=== PATIENT | female | born 1970 | race Caucasian/White ===

== ENCOUNTER → 2020-01-23 | Emergency (ER) | payer MEDICAID, OTHER ==
[~2020-01-23] VITALS: Ht 177.8 cm; Wt 77.1 kg
[~2020-01-23] MED LIST: POTASSIUM EFFERVESENT TAB 25 MEQ PO ONE; SODIUM CHLORIDE 0.9% 1,000 ML IVB ONE
[2020-01-23 02:31] LABS: Basophils # (auto) 0 uL; Basophils % (auto) 0.4 % (0.0-2.0); Eosinophils # (auto) 0.1 uL; Eosinophils % (auto) 1.5 % (0.0-7.0); Hematocrit 41.1 % (36.0-46.0); Hemoglobin 13.9 g/dL (12.2-16.2); Lymphocytes # (auto) 1.6 uL; Lymphocytes % (auto) 17.9 % (10.0-50.0); Mean Corpuscular Hemoglobin 28.2 pg (28.0-32.0); Mean Corpuscular Hgb Conc. 33.7 g/dL (32.0-36.0); Mean Corpuscular Volume 83.5 fL (80.0-100.0); Monocytes # (auto) 0.4 uL; Neutrophils # (auto) 6.7 uL; Neutrophils % (auto) 75.2 % (37.0-80.0); Nucleated Red Blood Cells % 0.1 %; Platelet Count (auto) 214 10^3/uL (140-450); Red Blood Cells 4.93 10^6/uL (4.0-5.20); Red Cell Distribution Width 15.3 % (11.8-14.3); White Blood Cell 8.9 10^3/uL (4.4-10.8)
[2020-01-23 02:48] LABS: Alanine Aminotransferase 18 U/L (13-56); Albumin 3.3 g/dL (3.4-5.0); Anion Gap 10 (5-15); Aspartate Aminotransferase 14 U/L (15-37); BUN/Creatinine Ratio 10.9; Blood Urea Nitrogen 10 mg/dL (7-18); Calcium 8.4 mg/dL (8.5-10.1); Carbon Dioxide 24 mmol/L (21-32); Chloride 99 mmol/L (98-107); GFR African American 84 mL/min; GFR Non-African American 69 mL/min; Glucose 248 mg/dL (74-106); Magnesium 1.4 mg/dL (1.6-2.6); Sodium 133 mmol/L (136-145)
[2020-01-23 02:49] LABS: Urine Bacteria MOD /hpf (None Seen); Urine Blood Negative /uL (Negative); Urine Specific Gravity 1.002 (1.001-1.035); Urine WBC 5 /hpf (0 - 5)
[2020-01-23 02:50] LABS: Salicylate < 1.7 mg/dL (2.8-20.0)
[2020-01-23 02:54] LABS: Acetaminophen < 2.0 ug/mL (10-30); Potassium 2.7 mmol/L (3.5-5.1)
[2020-01-23 02:56] LABS: Lactic Acid w/Reflex 5.3 mmol/L (0.4-2.0)
[2020-01-23 02:58] LABS: Alcohol, Urine < 3.0 mg/dL (0-5); Amphetamine Screen, Urine NEGATIVE (NEGATIVE); Barbiturate Scree,Urine NEGATIVE (NEGATIVE); Benzodiazephine Screen, Urine NEGATIVE (NEGATIVE); Cannabinoid Screen, Urine NEGATIVE (NEGATIVE); Cocaine Screen, Urine NEGATIVE (NEGATIVE); Opiate Scree,Urine NEGATIVE (NEGATIVE); Phencyclidine Screen, Urine NEGATIVE (NEGATIVE)
[2020-01-23 02:58] LABS: Alkaline Phosphatase 138 U/L (45-117); Bilirubin, Total 0.6 mg/dL (0.2-1.0)
[2020-01-23] MEDS: MAGNESIUM SULFATE 1GM/100ML 100 ML IV SCH ×2 (07:39→08:35)
[2020-01-23 14:30] VITALS: BP 117/76
== END | disposition home or self-care (01) ==
LOC: EDBD 01:15 → ER 01:15
DX: R53.1 Weakness (principal); N39.0 Urinary tract infection, site not specified; E87.6 Hypokalemia; E83.42 Hypomagnesemia; E46 Unspecified protein-calorie malnutrition; E11.9 Type 2 diabetes mellitus without complications; I10 Essential (primary) hypertension; F17.210 Nicotine dependence, cigarettes, uncomplicated; Z68.24 Body mass index [BMI] 24.0-24.9, adult; Z59.0 Homelessness
CPT/HCPCS: 36415; 71045; 80053; 80307; 80329; 81001; 83605; 83735; 84484; 85025; 93005; 96361; 96365; 96366; 99285; J3475; J7030

== ENCOUNTER 2020-01-24 09:32 | Emergency (ER) | payer MEDICAID ==
[~2020-01-24] VITALS: Ht 162.6 cm; Wt 86.2 kg
[2020-01-24] MEDS ORDERED: SODIUM CHLORIDE 0.9% 1,000 ML IV ONE (09:44)
[2020-01-24] MEDS ORDERED: KETOROLAC TROMETH 15 mg/ml 1ML VL IV ONE (09:45)
[2020-01-24 10:25] LABS: Basophils # (auto) 0 10 ^3/uL (0-0.2); Basophils % (auto) 0.3 % (0.0-2.0); Eosinophils # (auto) 0 10 ^3/uL (0-0.8); Eosinophils % (auto) 0.4 % (0.0-7.0); Hematocrit 38.4 % (36.0-46.0); Hemoglobin 13.2 g/dL (12.2-16.2); Lymphocytes # (auto) 1.1 10 ^3/uL (0.4-5.4); Lymphocytes % (auto) 14.4 % (10.0-50.0); Mean Corpuscular Hemoglobin 28.8 pg (28.0-32.0); Mean Corpuscular Hgb Conc. 34.5 g/dL (32.0-36.0); Mean Corpuscular Volume 83.5 fL (80.0-100.0); Monocytes # (auto) 0.4 10 ^3/uL (0-1.3); Neutrophils # (auto) 6.2 10 ^3/uL (1.6-8.6); Neutrophils % (auto) 79.9 % (37.0-80.0); Nucleated Red Blood Cells % 0.1 %; Platelet Count (auto) 183 10^3/uL (140-450); Red Cell Distribution Width 15.9 % (11.8-14.3); White Blood Cell 7.8 10^3/uL (4.4-10.8)
[2020-01-24 10:46] LABS: Albumin 3.2 g/dL (3.4-5.0); Calcium 8.7 mg/dL (8.5-10.1); Potassium 3.3 mmol/L (3.5-5.1)
[2020-01-24 10:51] LABS: BUN/Creatinine Ratio 10.1; Bilirubin, Total 0.7 mg/dL (0.2-1.0); Total Protein 7.7 g/dL (6.4-8.2)
[2020-01-24 11:00] VITALS: BP 134/83
== END 2020-01-24 13:47 | disposition home or self-care (01) ==
LOC: EDBD 09:32 → ER 09:32
DX: R53.1 Weakness (principal); M79.10 Myalgia, unspecified site; E11.9 Type 2 diabetes mellitus without complications; I10 Essential (primary) hypertension; F17.210 Nicotine dependence, cigarettes, uncomplicated; Z90.49 Acquired absence of other specified parts of digestive tract; Z88.5 Allergy status to narcotic agent; Z59.0 Homelessness
CPT/HCPCS: 36415; 80053; 82962; 85025; 93005; 96374; 99284; J1885; J7030

== ENCOUNTER → 2020-01-27 | Emergency (ER) | payer MEDICAID ==
[~2020-01-27] VITALS: Ht 165.1 cm; Wt 72.6 kg
[~2020-01-27] MED LIST changes: -POTASSIUM EFFERVESENT TAB 25 MEQ PO ONE; +QUEtiapine FUMARATE 25 MG TAB PO ONE; -SODIUM CHLORIDE 0.9% 1,000 ML IVB ONE
[2020-01-27 17:46] VITALS: BP 127/81
== END | disposition home or self-care (01) ==
LOC: EDUNIT# 17:27 → EDBD 17:35 → ER 17:35
DX: T73.0XXA Starvation, initial encounter (principal); F31.9 Bipolar disorder, unspecified; F41.9 Anxiety disorder, unspecified; E11.9 Type 2 diabetes mellitus without complications; Z90.49 Acquired absence of other specified parts of digestive tract; Z59.0 Homelessness; Z88.5 Allergy status to narcotic agent; X58.XXXA Exposure to other specified factors, initial encounter
CPT/HCPCS: 82962

== ENCOUNTER → 2020-01-31 | Emergency (ER) | payer MEDICAID ==
[~2020-01-31] VITALS: Ht 162.6 cm; Wt 99.8 kg
[2020-01-31 09:43] VITALS: BP 137/87
== END | disposition home or self-care (01) ==
LOC: ER 09:30
DX: F31.9 Bipolar disorder, unspecified (principal); E11.9 Type 2 diabetes mellitus without complications; I10 Essential (primary) hypertension; F17.210 Nicotine dependence, cigarettes, uncomplicated; Z90.49 Acquired absence of other specified parts of digestive tract; Z88.5 Allergy status to narcotic agent
CPT/HCPCS: 82962

== ENCOUNTER → 2020-02-01 | Emergency (ER) | payer MEDICAID ==
[~2020-02-01] VITALS: Ht 162.6 cm; Wt 89.4 kg
[2020-02-01 02:00] VITALS: BP 122/85
== END | disposition home or self-care (01) ==
LOC: ER 00:18
DX: E11.9 Type 2 diabetes mellitus without complications (principal); F31.9 Bipolar disorder, unspecified; I10 Essential (primary) hypertension; F17.210 Nicotine dependence, cigarettes, uncomplicated; Z76.0 Encounter for issue of repeat prescription; Z59.0 Homelessness; Z88.5 Allergy status to narcotic agent

== ENCOUNTER 2021-08-02 11:26 | Inpatient (IN) | payer MEDICAID ==
[~2021-08-02] VITALS: Ht 162.6 cm; Wt 67.5 kg
[2021-08-02] MEDS ORDERED: KETOROLAC TROMETH 30 MG/ML 1ML VIAL IV ONE (11:45)
[2021-08-02 11:55] LABS: Basophils # (auto) 0 10 ^3/uL (0-0.2); Basophils % (auto) 0.9 % (0.0-2.0); Eosinophils # (auto) 0.2 10 ^3/uL (0-0.8); Eosinophils % (auto) 5.1 % (0.0-7.0); Hematocrit 39.8 % (36.0-46.0); Hemoglobin 13.2 g/dL (12.2-16.2); Lymphocytes # (auto) 2.4 10 ^3/uL (0.4-5.4); Lymphocytes % (auto) 53.1 % (10.0-50.0); Mean Corpuscular Hemoglobin 27.9 pg (28.0-32.0); Mean Corpuscular Hgb Conc. 33.2 g/dL (32.0-36.0); Monocytes # (auto) 0.2 10 ^3/uL (0-1.3); Monocytes % (auto) 5.4 % (0.0-12.0); Neutrophils # (auto) 1.6 10 ^3/uL (1.6-8.6); Neutrophils % (auto) 35.5 % (37.0-80.0); Nucleated Red Blood Cells % 0.1 %; Red Blood Cells 4.74 10^6/uL (4.0-5.20); Red Cell Distribution Width 14.4 % (11.8-14.3); White Blood Cell 4.6 10^3/uL (4.4-10.8)
[2021-08-02 12:23] LABS: Albumin 3.2 g/dL (3.4-5.0); Calcium 8.7 mg/dL (8.5-10.1)
[2021-08-02 12:27] LABS: BUN/Creatinine Ratio 18.3; CRP High Sensitivity 0.78 mg/dL (< 0.3)
[2021-08-02 12:31] LABS: Potassium 2.9 mmol/L (3.5-5.1)
[2021-08-02] MEDS ORDERED: POTASSIUM CHL 20 Meq TABLET PO ONE (12:45)
[2021-08-02] MEDS ORDERED: PIPERACILLIN-TAZOB 3.375GM 100 ML IV ONE (13:15)
[2021-08-02] MEDS ORDERED: VANCOMYCIN PER PHARMACY 0 MG IV SCH ×2 (13:15→23:45)
[2021-08-02] MEDS: VANCOMYCIN 1GM/250ML 250 ML IV SCH (21:58)
[2021-08-02] MEDS ORDERED: DEXTROSE (50%) 50ML SYRG IV PRN (23:45)
[2021-08-02] MEDS ORDERED: MORPHINE SULFATE INJECTION 2 MG/ML SYRG IV PRN (23:45)
[2021-08-02] MEDS ORDERED: ACETAMINOPHEN 325 MG TAB PO PRN (23:45)
[2021-08-02] MEDS ORDERED: ONDANSETRON HCL 4 MG/2 ML VIAL IV PRN (23:45)
[2021-08-03] MEDS ORDERED: QUEtiapine FUMARATE 25 MG TAB PO ONE
[2021-08-03] MEDS: VANCOMYCIN 1GM/250ML 250 ML IV SCH ×2 (04:18→16:11)
[2021-08-03 04:48] LABS: Hematocrit 37.6 % (36.0-46.0); Hemoglobin 12.7 g/dL (12.2-16.2); Mean Corpuscular Hemoglobin 28.2 pg (28.0-32.0); Mean Corpuscular Hgb Conc. 33.7 g/dL (32.0-36.0); Mean Corpuscular Volume 83.7 fL (80.0-100.0); White Blood Cell 4.3 10^3/uL (4.4-10.8)
[2021-08-03 05:22] LABS: BUN/Creatinine Ratio 20.5; Calcium 8.6 mg/dL (8.5-10.1)
[2021-08-03 05:49] LABS: Basophils % (manual) 0 (0.0-2.0); Blast Cells 0; Metamyelocytes % 0; Myelocytes % 0; Promyelocytes % 0; Reactive Lymphocytes 0
[2021-08-03] MEDS: CLINDAMYCIN 900MG IV 50 ML IV SCH ×2 (06:04→10:13)
[2021-08-03 06:19] LABS: Potassium 2.9 mmol/L (3.5-5.1)
[2021-08-03] MEDS: ACCU-CHEK COMFORT CURVE STRIP VI SCH ×4 (06:49→22:00)
[2021-08-03] MEDS: InsuLIN REG 1unit/0.01ml Soln (100units/ml) SC SCH ×4 (06:50→22:00)
[2021-08-03 08:26] LABS: Band Neutrophils % (manual) 1; Eosinophils % (manual) 4 (0-7); Lymphocytes % (manual) 54 (10.0-50.0); Monocytes % (manual) 7 (0-12)
[2021-08-03] MEDS: POTASSIUM CHL 20MEQ/100ML 100 ML IV SCH ×2 (09:00→11:00)
[2021-08-03] MEDS ORDERED: POTASSIUM CHL 20 Meq TABLET PO ONE ×2 (09:00→13:00)
[2021-08-03] MEDS ORDERED: MORPHINE SULFATE INJECTION 2 MG/ML SYRG ONE (12:06)
[2021-08-03] MEDS ORDERED: ONDANSETRON HCL 4 MG/2 ML VIAL ONE (12:06)
[2021-08-03] MEDS ORDERED: POTASSIUM CHL 20MEQ/100ML 100 ML IV ONE (13:53)
[2021-08-03] MEDS: cefTRIAXone 1GM/50ML D5W 50 ML IV SCH (18:49)
[2021-08-03] MEDS ORDERED: IBUPROFEN 400 MG TAB PO PRN (19:00)
[2021-08-03] MEDS ORDERED: ACETAMINOPHEN 325 MG TAB PO PRN (19:00)
[2021-08-03] MEDS ORDERED: hydrALAZINE HCL 20 MG/ML VL IV PRN (19:00)
[2021-08-03] MEDS: QUEtiapine FUMARATE 25 MG TAB PO SCH ×2 (21:34)
[2021-08-03] MEDS ORDERED: QUEtiapine FUMARATE 25 MG TAB PO SCH (22:00)
[2021-08-04] MEDS: VANCOMYCIN 1GM/250ML 250 ML IV SCH (04:00)
[2021-08-04 06:01] LABS: Basophils # (auto) 0 10 ^3/uL (0-0.2); Basophils % (auto) 0.5 % (0.0-2.0); Eosinophils # (auto) 0.2 10 ^3/uL (0-0.8); Eosinophils % (auto) 5.8 % (0.0-7.0); Hematocrit 34.4 % (36.0-46.0); Hemoglobin 11.6 g/dL (12.2-16.2); Lymphocytes # (auto) 1.8 10 ^3/uL (0.4-5.4); Lymphocytes % (auto) 48.8 % (10.0-50.0); Mean Corpuscular Hemoglobin 28.5 pg (28.0-32.0); Mean Corpuscular Hgb Conc. 33.8 g/dL (32.0-36.0); Mean Corpuscular Volume 84.3 fL (80.0-100.0); Monocytes # (auto) 0.3 10 ^3/uL (0-1.3); Monocytes % (auto) 6.7 % (0.0-12.0); Neutrophils # (auto) 1.4 10 ^3/uL (1.6-8.6); Neutrophils % (auto) 38.2 % (37.0-80.0); Nucleated Red Blood Cells % 0.1 %; Red Blood Cells 4.08 10^6/uL (4.0-5.20); Red Cell Distribution Width 14.1 % (11.8-14.3); White Blood Cell 3.8 10^3/uL (4.4-10.8)
[2021-08-04 06:06] LABS: Magnesium 1.8 mg/dL (1.6-2.6); Potassium 4.3 mmol/L (3.5-5.1)
[2021-08-04 06:12] LABS: Calcium 8.1 mg/dL (8.5-10.1); Potassium 4.3 mmol/L (3.5-5.1)
[2021-08-04 06:14] LABS: BUN/Creatinine Ratio 31.7
[2021-08-04] MEDS: InsuLIN REG 1unit/0.01ml Soln (100units/ml) SC SCH (06:33)
[2021-08-04] MEDS: ACCU-CHEK COMFORT CURVE STRIP VI SCH ×2 (06:33→12:31)
[2021-08-04 08:42] VITALS: BP 122/69
[2021-08-04] MEDS: cefTRIAXone 1GM/50ML D5W 50 ML IV SCH (09:00)
[2021-08-04] MEDS ORDERED: FOLIC ACID 1 MG, MULTIPLE VITAMIN 10 ML, MAGNESIUM SULF SDV 50% 8 MEQ, THIAMINE INJ 100... INJ SCH ×5 (10:00)
[2021-08-04] MEDS ORDERED: OLANZapine 5 MG TAB PO SCH (11:15)
[2021-08-04] MEDS ORDERED: VANCOMYCIN 1GM/250ML 250 ML IV SCH (13:00)
[2021-08-04 13:27] VITALS: BP 109/69
[2021-08-04 16:45] VITALS: BP 154/107
== END 2021-08-04 19:45 | disposition left against medical advice (07) | DRG 349 ==
LOC: EDBD 11:26 → EDUNIT# 11:26 → ER 11:26 → OVERFLOW 23:40 → WEST WING 08-03 17:02
PROVIDERS: ADMIT Nurse Practitioner Family; ATTEND Nurse Practitioner Family
DX: T87.44 Infection of amputation stump, left lower extremity (principal); E11.51 Type 2 diabetes mellitus with diabetic peripheral angiopathy without gangrene; M86.8X7 Other osteomyelitis, ankle and foot; L97.529 Non-pressure chronic ulcer of other part of left foot with unspecified severity; E11.621 Type 2 diabetes mellitus with foot ulcer; F29 Unspecified psychosis not due to a substance or known physiological condition; D72.819 Decreased white blood cell count, unspecified; Y83.5 Amputation of limb(s) as the cause of abnormal reaction of the patient, or of later complication, without mention of misadventure at the time of the procedure; F19.90 Other psychoactive substance use, unspecified, uncomplicated; Z20.822 Contact with and (suspected) exposure to COVID-19; Z53.29 Procedure and treatment not carried out because of patient's decision for other reasons; E87.6 Hypokalemia; E11.69 Type 2 diabetes mellitus with other specified complication; F17.210 Nicotine dependence, cigarettes, uncomplicated; F20.9 Schizophrenia, unspecified; F31.9 Bipolar disorder, unspecified; F41.9 Anxiety disorder, unspecified; I10 Essential (primary) hypertension; Z53.9 Procedure and treatment not carried out, unspecified reason; Z59.0 Homelessness; Z87.442 Personal history of urinary calculi; Z90.49 Acquired absence of other specified parts of digestive tract; Z88.5 Allergy status to narcotic agent; Z89.432 Acquired absence of left foot
CPT/HCPCS: 36415; 73620; 80048; 80053; 80202; 82962; 83036; 83605; 83735; 84132; 85007; 85025; 85027; 85652; 86141; 87040; 87086; 87426; 93005; 93306; 93925; 96365; 96375; G0378; J1885; J2405; J2543; J3480; J3490

== ENCOUNTER 2023-01-31 18:51 | Inpatient (IN) | payer MEDICAID ==
[~2023-01-31] VITALS: Ht 172.7 cm; Wt 105.0 kg
[2023-01-31 22:26] LABS: Basophils # (auto) 0.1 10 ^3/uL (0-0.2); Basophils % (auto) 0.8 % (0.0-2.0); Eosinophils # (auto) 0.3 10 ^3/uL (0-0.8); Eosinophils % (auto) 2.9 % (0.0-7.0); Hematocrit 37.8 % (36.0-46.0); Lymphocytes # (auto) 3.3 10 ^3/uL (0.4-5.4); Lymphocytes % (auto) 33.6 % (10.0-50.0); Mean Corpuscular Hemoglobin 29.5 pg (28.0-32.0); Mean Corpuscular Hgb Conc. 34.3 g/dL (32.0-36.0); Mean Corpuscular Volume 86.1 fL (80.0-100.0); Monocytes # (auto) 0.6 10 ^3/uL (0-1.3); Monocytes % (auto) 6.3 % (0.0-12.0); Neutrophils # (auto) 5.5 10 ^3/uL (1.6-8.6); Neutrophils % (auto) 56.4 % (37.0-80.0); Nucleated Red Blood Cells % 0.2 %; Red Blood Cells 4.39 10^6/uL (4.0-5.20); Red Cell Distribution Width 14.2 % (11.8-14.3); White Blood Cell 9.8 10^3/uL (4.4-10.8)
[2023-01-31 22:51] LABS: Albumin 3.6 g/dL (3.4-5.0); BUN/Creatinine Ratio 32.4; Calcium 8.6 mg/dL (8.5-10.1); Potassium 3.6 mmol/L (3.5-5.1)
[2023-01-31 23:00] LABS: CRP High Sensitivity 1.23 mg/dL (< 0.3); Total Protein 7.4 g/dL (6.4-8.2)
[2023-02-01] MEDS ORDERED: cefTRIAXone 1GM/50ML D5W 50 ML IV ONE (00:15)
[2023-02-01] MEDS ORDERED: DOCUSATE SOD 100 MG CAP PO PRN (01:00)
[2023-02-01] MEDS ORDERED: VANCOMYCIN PER PHARMACY 0 MG IV SCH (01:00)
[2023-02-01] MEDS ORDERED: ACETAMINOPHEN 325 MG TAB PO PRN (01:00)
[2023-02-01] MEDS ORDERED: NITROGLYCERIN 0.4 MG SL TAB SL PRN (01:00)
[2023-02-01] MEDS ORDERED: hydrALAZINE HCL 20 MG/ML VL IV PRN (01:00)
[2023-02-01] MEDS ORDERED: DEXTROSE (50%) 50ML SYRG IV PRN (01:00)
[2023-02-01] MEDS ORDERED: VANCOMYCIN 1GM/250ML 250 ML IV ONE (01:15)
[2023-02-01 06:01] LABS: Basophils # (auto) 0 10 ^3/uL (0-0.2); Basophils % (auto) 0.4 % (0.0-2.0); Eosinophils # (auto) 0.3 10 ^3/uL (0-0.8); Eosinophils % (auto) 3.4 % (0.0-7.0); Hematocrit 37.3 % (36.0-46.0); Hemoglobin 12.6 g/dL (12.2-16.2); Lymphocytes # (auto) 2.9 10 ^3/uL (0.4-5.4); Lymphocytes % (auto) 37.6 % (10.0-50.0); Mean Corpuscular Hemoglobin 29.6 pg (28.0-32.0); Mean Corpuscular Hgb Conc. 33.6 g/dL (32.0-36.0); Mean Corpuscular Volume 87.9 fL (80.0-100.0); Monocytes # (auto) 0.5 10 ^3/uL (0-1.3); Monocytes % (auto) 6.2 % (0.0-12.0); Neutrophils % (auto) 52.4 % (37.0-80.0); Nucleated Red Blood Cells % 0.1 %; Red Blood Cells 4.25 10^6/uL (4.0-5.20); Red Cell Distribution Width 13.9 % (11.8-14.3); White Blood Cell 7.6 10^3/uL (4.4-10.8)
[2023-02-01] MEDS: SODIUM CHLOR 0.9% PF (SALINE LOCK) 10ML VIAL/SYR IV SCH ×3 (06:05→22:22)
[2023-02-01 06:23] LABS: Albumin 3.4 g/dL (3.4-5.0); Calcium 8.9 mg/dL (8.5-10.1)
[2023-02-01 06:25] LABS: BUN/Creatinine Ratio 33.3; Potassium 3.3 mmol/L (3.5-5.1)
[2023-02-01 06:28] LABS: Bilirubin, Total 1.3 mg/dL (0.2-1.0); Total Protein 7.1 g/dL (6.4-8.2)
[2023-02-01] MEDS: InsuLIN REG 1unit/0.01ml Soln (100units/ml) SC SCH ×4 (07:00→22:00)
[2023-02-01] MEDS: ACCU-CHEK COMFORT CURVE STRIP VI SCH ×4 (07:04→22:22)
[2023-02-01] MEDS: ENOXAPARIN SOD 40 MG/0.4 ML SYRINGE SC SCH (10:42)
[2023-02-01] MEDS: MULTIPLE VITAMIN TAB PO SCH (10:42)
[2023-02-01] MEDS: ASCORBIC ACID 500 MG TAB PO SCH ×2 (10:42→22:00)
[2023-02-01] MEDS: FAMOTIDINE (10MG/ML) 2ML VL IV SCH ×2 (10:43→22:22)
[2023-02-01] MEDS: IBUPROFEN 600 MG TAB PO PRN ×2 (10:47→18:45)
[2023-02-01] MEDS: ZINC SULFATE 220mg CAP or TAB PO SCH (12:10)
[2023-02-01] MEDS: FLUoxetine HCL 20 MG CAP PO SCH (13:08)
[2023-02-01] MEDS ORDERED: POTASSIUM CHL 20 Meq TABLET PO ONE (15:45)
[2023-02-01] MEDS: VANCOMYCIN 1GM/250ML 250 ML IV SCH (18:30)
[2023-02-01 21:24] VITALS: BP 168/86
[2023-02-01] MEDS: QUEtiapine FUMARATE 100 MG TAB PO SCH (22:22)
[2023-02-02] VITALS (7 sets, daily range): BP systolic 120–142; BP diastolic 73–82
[2023-02-02] MEDS: IBUPROFEN 600 MG TAB PO PRN (04:02)
[2023-02-02 05:25] LABS: Basophils # (auto) 0 10 ^3/uL (0-0.2); Basophils % (auto) 0.6 % (0.0-2.0); Eosinophils # (auto) 0.3 10 ^3/uL (0-0.8); Eosinophils % (auto) 5.3 % (0.0-7.0); Hematocrit 34.7 % (36.0-46.0); Hemoglobin 11.6 g/dL (12.2-16.2); Lymphocytes # (auto) 2.7 10 ^3/uL (0.4-5.4); Lymphocytes % (auto) 44.2 % (10.0-50.0); Mean Corpuscular Hemoglobin 28.9 pg (28.0-32.0); Mean Corpuscular Hgb Conc. 33.5 g/dL (32.0-36.0); Mean Corpuscular Volume 86.2 fL (80.0-100.0); Monocytes # (auto) 0.3 10 ^3/uL (0-1.3); Monocytes % (auto) 5.6 % (0.0-12.0); Neutrophils # (auto) 2.7 10 ^3/uL (1.6-8.6); Neutrophils % (auto) 44.3 % (37.0-80.0); Nucleated Red Blood Cells % 0.1 %; Red Blood Cells 4.02 10^6/uL (4.0-5.20); Red Cell Distribution Width 13.8 % (11.8-14.3); White Blood Cell 6.2 10^3/uL (4.4-10.8)
[2023-02-02 05:33] LABS: Calcium 8.8 mg/dL (8.5-10.1); Potassium 4.2 mmol/L (3.5-5.1)
[2023-02-02 05:36] LABS: Albumin 3.1 g/dL (3.4-5.0); BUN/Creatinine Ratio 24.1
[2023-02-02] MEDS: VANCOMYCIN 1GM/250ML 250 ML IV SCH ×2 (05:51→18:02)
[2023-02-02] MEDS: SODIUM CHLOR 0.9% PF (SALINE LOCK) 10ML VIAL/SYR IV SCH ×3 (05:51→22:05)
[2023-02-02 06:08] LABS: Bilirubin, Total 0.8 mg/dL (0.2-1.0)
[2023-02-02] MEDS: ACCU-CHEK COMFORT CURVE STRIP VI SCH ×4 (06:36→22:05)
[2023-02-02] MEDS: InsuLIN REG 1unit/0.01ml Soln (100units/ml) SC SCH ×4 (06:41→22:00)
[2023-02-02] MEDS ORDERED: LISINOPRIL 20 MG TAB PO SCH (10:00)
[2023-02-02] MEDS: PREGABALIN CAPSULE 75 MG CAP PO SCH (10:30)
[2023-02-02] MEDS: ASPirin 81 mg TAB PO SCH (10:30)
[2023-02-02] MEDS: HCTZ 25 MG TAB PO SCH (10:30)
[2023-02-02] MEDS: ZINC SULFATE 220mg CAP or TAB PO SCH (10:31)
[2023-02-02] MEDS: FAMOTIDINE (10MG/ML) 2ML VL IV SCH ×2 (10:31→22:05)
[2023-02-02] MEDS: FLUoxetine HCL 20 MG CAP PO SCH (10:31)
[2023-02-02] MEDS: ASCORBIC ACID 500 MG TAB PO SCH ×2 (10:31→22:05)
[2023-02-02] MEDS: ENOXAPARIN SOD 40 MG/0.4 ML SYRINGE SC SCH (10:31)
[2023-02-02] MEDS: MULTIPLE VITAMIN TAB PO SCH (10:33)
[2023-02-02] MEDS: ONDANSETRON HCL 4 MG/2 ML VIAL IV PRN (10:46)
[2023-02-02] MEDS ORDERED: ACET120S38 PR (13:46)
[2023-02-02] MEDS ORDERED: ASPI-543 PO (13:46)
[2023-02-02] MEDS ORDERED: ATOR10TA PO (13:48)
[2023-02-02] MEDS ORDERED: HYDR12.56 PO (13:50)
[2023-02-02] MEDS ORDERED: LISI-716 PO (13:51)
[2023-02-02] MEDS ORDERED: PREG75CA PO (13:52)
[2023-02-02] MEDS ORDERED: DAKINS HALF STR 0.25% (NaHypochlorite) 473 ML TOPICAL SOL TOP ONE (14:15)
[2023-02-02] MEDS: DAKINS HALF STR 0.25% (NaHypochlorite) 473 ML TOPICAL SOL TOP SCH (22:00)
[2023-02-02] MEDS: QUEtiapine FUMARATE 100 MG TAB PO SCH (22:05)
[2023-02-02] MEDS: ATORVASTATIN 20 MG TAB PO SCH (22:05)
[2023-02-03] MEDS: IBUPROFEN 600 MG TAB PO PRN (03:47)
[2023-02-03 05:00] VITALS: BP 111/67
[2023-02-03] MEDS: ACCU-CHEK COMFORT CURVE STRIP VI SCH ×4 (06:24→21:44)
[2023-02-03] MEDS: VANCOMYCIN 1GM/250ML 250 ML IV SCH ×2 (06:24→18:26)
[2023-02-03] MEDS: SODIUM CHLOR 0.9% PF (SALINE LOCK) 10ML VIAL/SYR IV SCH ×3 (06:24→21:43)
[2023-02-03] MEDS: InsuLIN REG 1unit/0.01ml Soln (100units/ml) SC SCH ×4 (06:25→21:46)
[2023-02-03 09:00] VITALS: BP 120/71
[2023-02-03] MEDS: DAKINS HALF STR 0.25% (NaHypochlorite) 473 ML TOPICAL SOL TOP SCH ×2 (10:00→21:44)
[2023-02-03] MEDS: MULTIPLE VITAMIN TAB PO SCH (10:29)
[2023-02-03] MEDS: ASPirin 81 mg TAB PO SCH (10:29)
[2023-02-03] MEDS: PREGABALIN CAPSULE 75 MG CAP PO SCH (10:29)
[2023-02-03] MEDS: HCTZ 25 MG TAB PO SCH (10:29)
[2023-02-03] MEDS: ZINC SULFATE 220mg CAP or TAB PO SCH (10:29)
[2023-02-03] MEDS: FAMOTIDINE (10MG/ML) 2ML VL IV SCH ×2 (10:29→21:44)
[2023-02-03] MEDS: FLUoxetine HCL 20 MG CAP PO SCH (10:30)
[2023-02-03] MEDS: ASCORBIC ACID 500 MG TAB PO SCH ×2 (10:30→21:43)
[2023-02-03] MEDS: ENOXAPARIN SOD 40 MG/0.4 ML SYRINGE SC SCH (10:31)
[2023-02-03 13:00] VITALS: BP 126/69
[2023-02-03 13:44] LABS: Partial Thromboplastin Time 31.7 sec (24.6-33.4)
[2023-02-03 17:00] VITALS: BP 106/65
[2023-02-03] MEDS: QUEtiapine FUMARATE 100 MG TAB PO SCH (21:43)
[2023-02-03] MEDS: DAKINS QUARTER STR 0.125% (NaHypochlorite) 473 ML TOPICAL SOL TOP SCH (21:44)
[2023-02-03] MEDS: ATORVASTATIN 20 MG TAB PO SCH (21:44)
[2023-02-03 22:00] VITALS: BP_SYST 119; BP_SYST 126; BP_DIAS 60; BP_DIAS 72
[2023-02-04 05:00] VITALS: BP 89/64
[2023-02-04 05:50] LABS: Potassium 3.5 mmol/L (3.5-5.1)
[2023-02-04 06:00] LABS: BUN/Creatinine Ratio 26.4; Calcium 8.8 mg/dL (8.5-10.1)
[2023-02-04] MEDS: VANCOMYCIN 1GM/250ML 250 ML IV SCH ×2 (06:26→18:16)
[2023-02-04] MEDS: SODIUM CHLOR 0.9% PF (SALINE LOCK) 10ML VIAL/SYR IV SCH ×4 (06:26→22:24)
[2023-02-04] MEDS: ACCU-CHEK COMFORT CURVE STRIP VI SCH ×4 (06:37→22:00)
[2023-02-04] MEDS: InsuLIN REG 1unit/0.01ml Soln (100units/ml) SC SCH ×4 (06:37→22:01)
[2023-02-04] MEDS ORDERED: BUPIVACAINE 0.5% P/F INJ 10 ML VIAL ONE (07:49)
[2023-02-04] MEDS ORDERED: SUCCINYLCHOLINE CHLORIDE 20 MG/ML 10ML VIAL IV ONE (07:49)
[2023-02-04] MEDS ORDERED: ONDANSETRON HCL 4 MG/2 ML VIAL ONE (07:56)
[2023-02-04] MEDS ORDERED: DexAMETHasone SOD PHOS 10MG/1ML VIAL INJ ONE (07:56)
[2023-02-04] MEDS ORDERED: PROPOFOL 10 MG/ML 20 ML IV ONE (07:56)
[2023-02-04] MEDS ORDERED: SODIUM CHLORIDE LOCK 10 ML ONE (07:56)
[2023-02-04] MEDS ORDERED: MIDAZOLAM HCL 2MG/2ML 2ml VIAL (1mg/ml) ONE (07:56)
[2023-02-04] MEDS ORDERED: EPINEPHrine HCL 1 MG/1 ML AMP ONE (07:56)
[2023-02-04] MEDS ORDERED: fentaNYL CITRATE 100 MCG/2 ML VL ONE (07:56)
[2023-02-04] MEDS ORDERED: ONDANSETRON HCL 4 MG/2 ML VIAL IV PRN (08:15)
[2023-02-04] MEDS ORDERED: HYDROmorphone HCL 2 MG/ML VL/or syr IV PRN ×2 (08:15)
[2023-02-04] MEDS ORDERED: ACCU-CHEK COMFORT CURVE STRIP VI ONE (08:15)
[2023-02-04] MEDS ORDERED: MORPHINE SULFATE INJ 2 MG/ml SYRG IV PRN (08:15)
[2023-02-04] MEDS ORDERED: POVIDONE IODINE 10 % TOPICAL OINT 30GM TOP ONE (08:19)
[2023-02-04] MEDS: DAKINS HALF STR 0.25% (NaHypochlorite) 473 ML TOPICAL SOL TOP SCH ×2 (10:00→22:00)
[2023-02-04] MEDS: ENOXAPARIN SOD 40 MG/0.4 ML SYRINGE SC SCH (10:00)
[2023-02-04] MEDS: MULTIPLE VITAMIN TAB PO SCH (10:00)
[2023-02-04] MEDS: ASCORBIC ACID 500 MG TAB PO SCH ×2 (10:00→22:00)
[2023-02-04] MEDS: DAKINS QUARTER STR 0.125% (NaHypochlorite) 473 ML TOPICAL SOL TOP SCH ×2 (10:00→22:00)
[2023-02-04] MEDS: ZINC SULFATE 220mg CAP or TAB PO SCH (10:00)
[2023-02-04] MEDS: ASPirin 81 mg TAB PO SCH (10:00)
[2023-02-04] MEDS: FAMOTIDINE (10MG/ML) 2ML VL IV SCH ×2 (10:00→22:24)
[2023-02-04] MEDS: FLUoxetine HCL 20 MG CAP PO SCH (12:09)
[2023-02-04] MEDS: HCTZ 25 MG TAB PO SCH (12:09)
[2023-02-04] MEDS: PREGABALIN CAPSULE 75 MG CAP PO SCH (12:09)
[2023-02-04 13:00] VITALS: BP 102/61
[2023-02-04] MEDS: MORPHINE SULFATE INJ 2 MG/ml SYRG IV PRN (14:45)
[2023-02-04] MEDS ORDERED: LIDOCAINE 1% (LOCAL ANESTH.) PF 5ml SDV ID ONE (15:45)
[2023-02-04 17:00] VITALS: BP 134/80
[2023-02-04] MEDS: IBUPROFEN 600 MG TAB PO PRN (17:27)
[2023-02-04 20:00] VITALS: BP 104/59
[2023-02-04] MEDS: ATORVASTATIN 20 MG TAB PO SCH (21:59)
[2023-02-04] MEDS: QUEtiapine FUMARATE 100 MG TAB PO SCH (21:59)
[2023-02-04 22:00] VITALS: BP 104/59
[2023-02-05] MEDS: MORPHINE SULFATE INJ 2 MG/ml SYRG IV PRN ×4 (00:32→17:58)
[2023-02-05 05:00] VITALS: BP 110/54
[2023-02-05] MEDS: SODIUM CHLOR 0.9% PF (SALINE LOCK) 10ML VIAL/SYR IV SCH ×5 (06:00→21:22)
[2023-02-05] MEDS: VANCOMYCIN 1GM/250ML 250 ML IV SCH ×2 (06:30→18:28)
[2023-02-05] MEDS: ACCU-CHEK COMFORT CURVE STRIP VI SCH ×4 (06:36→21:35)
[2023-02-05] MEDS: InsuLIN REG 1unit/0.01ml Soln (100units/ml) SC SCH ×4 (06:38→21:42)
[2023-02-05 09:00] VITALS: BP 109/76
[2023-02-05] MEDS: FAMOTIDINE (10MG/ML) 2ML VL IV SCH ×2 (09:26→21:21)
[2023-02-05] MEDS: ASPirin 81 mg TAB PO SCH (09:27)
[2023-02-05] MEDS: ENOXAPARIN SOD 40 MG/0.4 ML SYRINGE SC SCH (09:27)
[2023-02-05] MEDS: FLUoxetine HCL 20 MG CAP PO SCH (09:27)
[2023-02-05] MEDS: MULTIPLE VITAMIN TAB PO SCH (09:27)
[2023-02-05] MEDS: ZINC SULFATE 220mg CAP or TAB PO SCH (09:28)
[2023-02-05] MEDS: ASCORBIC ACID 500 MG TAB PO SCH ×2 (09:28→21:21)
[2023-02-05] MEDS: PREGABALIN CAPSULE 75 MG CAP PO SCH (09:28)
[2023-02-05] MEDS: HCTZ 25 MG TAB PO SCH (09:33)
[2023-02-05] MEDS: DAKINS HALF STR 0.25% (NaHypochlorite) 473 ML TOPICAL SOL TOP SCH ×2 (09:34→21:43)
[2023-02-05] MEDS: DAKINS QUARTER STR 0.125% (NaHypochlorite) 473 ML TOPICAL SOL TOP SCH ×2 (09:35→21:44)
[2023-02-05 13:00] VITALS: BP 120/73
[2023-02-05] MEDS ORDERED: ARTIFICIAL TEARS 15ml EACHEYE PRN (14:00)
[2023-02-05] MEDS: HYDROcodone-ACET 5/325MG TAB PO PRN ×2 (14:19→20:23)
[2023-02-05 17:05] VITALS: BP 107/64
[2023-02-05] MEDS: QUEtiapine FUMARATE 100 MG TAB PO SCH (21:20)
[2023-02-05] MEDS: ATORVASTATIN 20 MG TAB PO SCH (21:21)
[2023-02-05 22:00] VITALS: BP 106/57
[2023-02-06] MEDS: HYDROcodone-ACET 5/325MG TAB PO PRN ×4 (02:30→23:15)
[2023-02-06 05:00] VITALS: BP 106/60
[2023-02-06] MEDS: ACCU-CHEK COMFORT CURVE STRIP VI SCH ×4 (06:02→21:57)
[2023-02-06] MEDS: SODIUM CHLOR 0.9% PF (SALINE LOCK) 10ML VIAL/SYR IV SCH ×5 (06:03→21:56)
[2023-02-06] MEDS: VANCOMYCIN 1GM/250ML 250 ML IV SCH ×2 (06:03→17:54)
[2023-02-06] MEDS: InsuLIN REG 1unit/0.01ml Soln (100units/ml) SC SCH ×4 (06:04→22:00)
[2023-02-06] MEDS: MORPHINE SULFATE INJ 2 MG/ml SYRG IV PRN ×2 (06:14→18:27)
[2023-02-06 09:00] VITALS: BP 111/69
[2023-02-06] MEDS: HCTZ 25 MG TAB PO SCH (09:05)
[2023-02-06] MEDS: PREGABALIN CAPSULE 75 MG CAP PO SCH (09:06)
[2023-02-06] MEDS: FAMOTIDINE (10MG/ML) 2ML VL IV SCH ×2 (09:06→21:55)
[2023-02-06] MEDS: ZINC SULFATE 220mg CAP or TAB PO SCH (09:06)
[2023-02-06] MEDS: FLUoxetine HCL 20 MG CAP PO SCH (09:07)
[2023-02-06] MEDS: ASPirin 81 mg TAB PO SCH (09:07)
[2023-02-06] MEDS: ENOXAPARIN SOD 40 MG/0.4 ML SYRINGE SC SCH (09:08)
[2023-02-06] MEDS: MULTIPLE VITAMIN TAB PO SCH (09:08)
[2023-02-06] MEDS: DAKINS HALF STR 0.25% (NaHypochlorite) 473 ML TOPICAL SOL TOP SCH ×2 (09:13→22:00)
[2023-02-06] MEDS: DAKINS QUARTER STR 0.125% (NaHypochlorite) 473 ML TOPICAL SOL TOP SCH ×2 (09:14→22:00)
[2023-02-06] MEDS: ASCORBIC ACID 500 MG TAB PO SCH ×2 (11:05→21:56)
[2023-02-06 13:00] VITALS: BP 93/49
[2023-02-06 17:22] VITALS: BP 116/69
[2023-02-06] MEDS: QUEtiapine FUMARATE 100 MG TAB PO SCH (21:55)
[2023-02-06] MEDS: ATORVASTATIN 20 MG TAB PO SCH (21:55)
[2023-02-06 22:00] VITALS: BP 103/61
[2023-02-07 05:00] VITALS: BP 116/73
[2023-02-07] MEDS: SODIUM CHLOR 0.9% PF (SALINE LOCK) 10ML VIAL/SYR IV SCH ×3 (06:06→14:00)
[2023-02-07] MEDS: MORPHINE SULFATE INJ 2 MG/ml SYRG IV PRN (06:23)
[2023-02-07] MEDS: ACCU-CHEK COMFORT CURVE STRIP VI SCH ×3 (06:24→17:00)
[2023-02-07] MEDS: InsuLIN REG 1unit/0.01ml Soln (100units/ml) SC SCH ×3 (06:24→17:00)
[2023-02-07] MEDS: VANCOMYCIN 1GM/250ML 250 ML IV SCH (06:37)
[2023-02-07 08:39] VITALS: BP 112/49
[2023-02-07] MEDS: DAKINS HALF STR 0.25% (NaHypochlorite) 473 ML TOPICAL SOL TOP SCH (10:00)
[2023-02-07] MEDS: DAKINS QUARTER STR 0.125% (NaHypochlorite) 473 ML TOPICAL SOL TOP SCH (10:00)
[2023-02-07] MEDS: HCTZ 25 MG TAB PO SCH (10:00)
[2023-02-07] MEDS: FAMOTIDINE (10MG/ML) 2ML VL IV SCH (11:13)
[2023-02-07] MEDS: ASPirin 81 mg TAB PO SCH (11:14)
[2023-02-07] MEDS: ZINC SULFATE 220mg CAP or TAB PO SCH (11:14)
[2023-02-07] MEDS: PREGABALIN CAPSULE 75 MG CAP PO SCH (11:14)
[2023-02-07] MEDS: ENOXAPARIN SOD 40 MG/0.4 ML SYRINGE SC SCH (11:15)
[2023-02-07] MEDS: FLUoxetine HCL 20 MG CAP PO SCH (11:15)
[2023-02-07] MEDS: MULTIPLE VITAMIN TAB PO SCH (11:15)
[2023-02-07] MEDS: ASCORBIC ACID 500 MG TAB PO SCH (11:15)
[2023-02-07 12:06] VITALS: BP 112/49
[2023-02-07] MEDS: ONDANSETRON HCL 4 MG/2 ML VIAL IV PRN (12:33)
[2023-02-07 12:49] VITALS: BP 135/78
[2023-02-07 17:38] VITALS: BP 97/60
== END 2023-02-07 17:35 | DRG 305 ==
LOC: ER 18:51 → EDBD 18:51 → OVERFLOW 02-01 00:56 → EAST 02-01 21:05
PROVIDERS: ADMIT Nurse Practitioner Family; ATTEND Family Medicine
PROC: 05HY33Z Insertion of Infusion Device into Upper Vein, Percutaneous Approach (ICD-10-PCS; 2023-02-04)
PROC: B54NZZA Ultrasonography of Left Upper Extremity Veins, Guidance (ICD-10-PCS; 2023-02-04)
PROC: 0Y6J0Z3 Detachment at Left Lower Leg, Low, Open Approach (ICD-10-PCS; principal; 2023-02-04 08:59)
DX: E11.621 Type 2 diabetes mellitus with foot ulcer (principal); E11.52 Type 2 diabetes mellitus with diabetic peripheral angiopathy with gangrene; E11.21 Type 2 diabetes mellitus with diabetic nephropathy; M86.8X7 Other osteomyelitis, ankle and foot; E11.69 Type 2 diabetes mellitus with other specified complication; N30.90 Cystitis, unspecified without hematuria; L97.529 Non-pressure chronic ulcer of other part of left foot with unspecified severity; E11.40 Type 2 diabetes mellitus with diabetic neuropathy, unspecified; E11.65 Type 2 diabetes mellitus with hyperglycemia; S93.402A Sprain of unspecified ligament of left ankle, initial encounter; F20.9 Schizophrenia, unspecified; L97.421 Non-pressure chronic ulcer of left heel and midfoot limited to breakdown of skin; I10 Essential (primary) hypertension; W18.39XA Other fall on same level, initial encounter; Y93.89 Activity, other specified; Z59.00 Homelessness unspecified; Z89.512 Acquired absence of left leg below knee; Z82.49 Family history of ischemic heart disease and other diseases of the circulatory system; Z88.5 Allergy status to narcotic agent; Z88.8 Allergy status to other drugs, medicaments and biological substances; Y92.89 Other specified places as the place of occurrence of the external cause; Y99.8 Other external cause status; Z79.84 Long term (current) use of oral hypoglycemic drugs; Z79.899 Other long term (current) drug therapy
CPT/HCPCS: 36415; 36569; 71045; 73562; 73610; 73630; 73718; 80048; 80053; 80202; 80320; 82565; 82962; 85025; 85610; 85652; 85730; 86141; 86850; 86900; 86901; 87077; 87186; 87205; 87426; 93926; 96365; 96367; 97110; 97116; 97163; 97530; G0378; J0171; J0330; J0696; J1100; J1815; J2250; J2405; J2704; J3490

== ENCOUNTER 2025-09-18 16:12 | Inpatient (IN) | payer MEDICAID ==
[~2025-09-18] VITALS: Ht 167.6 cm; Wt 119.1 kg
[~2025-09-18 16:12] MED LIST changes: +ACET120S38 PR; +ASPI-543 PO; +ATOR10TA PO; +CARV25TA55 PO; +HYDR12.59 PO; +LISI10TA34 PO; +PANT40T PO; +PREG75CA PO; -QUEtiapine FUMARATE 25 MG TAB PO ONE; +VALS1TAB58 PO
--- NOTE | 2025-09-18 16:23 | ED.PDOC ---
GI ASSESSMENT HPI Comments 54-year-old female with since to the ED via EMS with a chief complaint of lower abdominal pain and substernal chest pain. Patient states lower abdominal pain has been constant over the last 16 days. Patient reports substernal chest pain as of one-week ago. Patient states she was on Keflex 3 days ago for diagnosed UTI. Patient additionally notes she has had right-sided angina in the past, and feels as though she has left-sided angina now. Patient has no further complaints at this time and otherwise denies further associated symptoms of palpitations, weakness, fatigue, nausea, emesis, fever. Chief Complaint: Abdominal Pain Time Seen by MD: 16:14 Primary Care Provider: NONE Reviewed Notes: Medications, Allergies Allergies: Coded Allergies: Clonazepam (Verified Allergy, Severe, 09/18/25) Codeine (Verified Allergy, Unknown, 01/24/20) Enalapril (Verified Allergy, Unknown, 01/31/23) Haloperidol (Verified Allergy, Unknown, 01/31/23) Home Meds Reported Medications Pregabalin (Lyrica) 75 Mg Cap, 1 CAP PO DAILY, #60 CAP 1 Refill 02/02/23 Lisinopril (Lisinopril) 10 Mg Tab, 10 MG PO QAM for 30 Days, MG 02/02/23 Hydrochlorothiazide (Hydrochlorothiazide) 12.5 Mg Cap, 12.5 MG PO DAILY for 30 Days, MG 02/02/23 Atorvastatin Calcium (Lipitor) 10 Mg Tab, 1 TAB PO QPM, #30 TAB 5 Refills 02/02/23 Aspirin (Aspir-Low) 81 Mg Tab, 81 MG PO DAILY for 30 Days, MG 02/02/23 Acetaminophen (Acetaminophen) 120 Mg Sup, 500 MG [place] Q6HP PRN for PAIN SCALE 1 THRU 6, MG 0 Refills 02/02/23 Information Source: Patient Mode of Arrival: EMS Timing: Days Duration: Since onset Severity: Moderate Pain Location: RLQ, LLQ Associated sign and symptoms: Abdominal Pain, Other (Chest Pain ) Past Medical History PAST MEDICAL HISTORY: DM, HTN, Schizophrenia Surgical History: Unknown CERTIFIED CONTROL SYSTEMS TECHNICIAN History: No Pertinent CERTIFIED CONTROL SYSTEMS TECHNICIAN History Family History Family History: Family hx of heart [place] Social History Smoker: Non-Smoker Alcohol: Denies ETOH Use Drugs: Denies Drug Use Lives In: Homeless Constitutional: denies: chills, diaphoresis, fatigue, fever, malaise, sweats, weakness, others EENTM: denies: blurred vision, double vision, ear bleeding, ear discharge, ear drainage, ear pain, ear ringing, eye pain, eye redness, hearing loss, mouth pain , mouth swelling, nasal discharge, nose bleeding, nose congestion, nose pain, photophobia, tearing, throat pain, throat swelling, voice changes, others Respiratory: denies: cough, hemoptysis, orthopnea, SOB at rest, shortness of breath, SOB with excertion, stridor, wheezing, others Cardiovascular: reports: chest pain; denies: dizzy spells, diaphoresis, Dyspnea on exertion, edema, irregular heart beat, left arm pain, lightheadedness, palpitations, PND, syncope, others Gastrointestinal: reports: abdominal pain; denies: abdomen distended, blood streaked bowels, constipated, diarrhea, dysphagia, difficulty swallowing, hematemesis, melena, nausea, poor appetite, poor fluid intake, rectal bleeding, rectal pain, vomiting, others Genitourinary: denies: abnormal vagina bleeding, burning, dyspareunia, dysuria, flank pain, frequency, hematuria, incontinence, pain, , vagina discharge, urgency, others Neurological: denies: dizziness, fainting, headache, left sided numbness, left sided weakness, numbness, paresthesia, pre-existing deficit, right sided numbness, right sided weakness, seizure, speech problems, tingling, tremors, weakness, others Musculoskeletal: denies: back pain, gout, joint pain, joint swelling, muscle p ain, muscle stiffness, neck pain, others Integumetry: denies: bruises, change in color, change in hair/nails, dryness, laceration, lesions, lumps, rash, wounds, others Allergic/Immunocompromised: denies: Difficulty Healing, Frequent Infections, Hives, Itching, others Hematologic/Lymphatic: denies: anemia, blood clots, easy bleeding, easy bruising, swollen glands, others Endocrine: denies: excessive hunger, excessive sweating, excessive thirst, excessive urination, flushing, intolerance to cold, intolerance to heat, unexplained weight gain, unexplained weight loss, others Psychiatric: denies: anxiety, bipolar disorder, depression, hopeless, panic disorder, schizophrenia, sleepless, suicidal, others All Other Systems: Reviewed and Negative Physical Exam General Appearance: Moderate Distress HEENT: Normal ENT Inspection, Pharynx Normal, TMs Normal Neck: Full Range of Motion, Non-Tender, Normal, Normal Inspection Respiratory: Chest Non-Tender, Lungs Clear, No Accessory Muscle Use, No Respiratory Distress, Normal Breath Sounds Cardiovascular: No Edema, No JVD, No Murmur, No Gallop, Normal Peripheral Pulses, Regular Rate/Rhythm Breast Exam: Deferred Gastrointestinal: No Organomegaly, Non Tender, No Pulsatile Mass, Normal Bowel Sounds, Soft Genitalia: Deferred Pelvic: Deferred Rectal: Deferred Extremities: No calf tenderness, Normal capillary refill, Normal inspection, Normal range of motion, Non-tender, No pedal edema Musculoskeletal : Apperance: Normal Neurologic: Alert, build and deployment engineer II-XII nml as Tested, No Motor Deficits, Normal Affect, Normal Mood, No Sensory Deficits Cerebellar Function: Normal Reflexes: Normal Skin: Dry, Normal Color, Warm Peripheral Pulses: 3+ Radial (R), 3+ Radial (L) Lymphatic: No Adenopathy Was a procedure done? Was a procedure done?: No GI differential Dx Differential Diagnosis: Constipation, Diverticular disease, Esophagitis, Gastritis/PUD, Gastroenteritis, Inflammatory BD, UTI, Dehydration, Food Po isoning, Bacterial, Parasitic, Viral X-Ray, Labs, Meds, VS Vital Signs Date Time Temp Pulse Resp B/P (MAP) Pulse Ox O2 Delivery O2 Flow Rate FiO2 09/18/25 16:40 98.2 80 18 132/75 (94) 97 98.2 09/18/25 16:29 89 09/18/25 16:18 98.7 84 20 143/83 98 98.7 Patient alert. Vitals stable. Complaining of chest pain. Answering questions. Spoke with her primary care physician. He will be admitting the patient for chest pain. Was given aspirin. Was given nitro. Explained to the patient. Continue monitoring. Time of 1ST Reevaluation: 17:16 Reevaluation 1ST: Unchanged Patient Education/Counseling: Diagnosis, Treatment Family Education/Counseling: No Family Present SEPSIS Sepsis Screen Physician Orders Troponin-I Hs (09/18/25 18:00) Troponin-I Hs (09/19/25 00:00) Troponin-I Hs (09/19/25 03:00) Complete Blood Count (09/18/25 16:21) Urinalysis (09/18/25 16:21) Basic Metabolic Panel (09/18/25 16:21) Troponin-I Hs (09/18/25 17:21) Troponin-I Hs (09/18/25 19:21) Vital Signs Date Time Temp Pulse Resp B/P (MAP) Pulse Ox O2 Delivery O2 Flow Rate FiO2 09/18/25 16:40 98.2 80 18 132/75 (94) 97 98.2 09/18/25 16:29 89 09/18/25 16:18 98.7 84 20 143/83 98 98.7 Departure 1 Departure Time of Disposition: 16:44 Impression: Primary Impression: Chest pain of unknown etiology Disposition: ADMITTED INPATIENT Admit to: Med Surg Condition: Guarded Critical Care Note Critical Care Time?: No Stability Stability form required: No Heart Score Heart Score: Heart Score Response (Comments) Value History Slightly Suspicious 0 EKG N/A 0 Age 45-64 1 Risk Factors 1 or 2 risk factors 1 Troponin Normal limit 0 Total 2 I personally scribed for SHILA PEARSON MD ([email or web address]) on 09/18/25 at 16:23. Electronically submitted by Sheri Mark ([facility]). SHILA PEARSON MD Sep 18, 2025 16:23
--- NOTE | 2025-09-18 16:30 | ECG ---
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
[2025-09-18] MEDS: NITROGLYCERIN 0.4 MG SL TAB SL ONE (16:45)
[2025-09-18 17:04] LABS: Hematocrit 42.8 % (36.0-46.0); Hemoglobin 14.4 g/dL (12.2-16.2); Mean Corpuscular Hemoglobin 28.0 pg (28.0-32.0); Mean Corpuscular Volume 83.2 fL (80.0-100.0); Nucleated Red Blood Cells % 0.0 %
[2025-09-18 17:12] LABS: Chloride 106 mmol/L (98-107); Potassium 3.7 mmol/L (3.5-5.1); Sodium 142 mmol/L (136-145)
[2025-09-18 17:13] LABS: Anion Gap 10 (5-15); Calcium 9.2 mg/dL (8.7-10.4); Carbon Dioxide 26 mmol/L (20-31)
[2025-09-18 17:18] LABS: BUN/Creatinine Ratio 14.5 (10.0-20.0); Blood Urea Nitrogen 12 mg/dL (9-23)
[2025-09-18 17:20] LABS: Glucose 139 mg/dL (74-106)
[2025-09-18 17:36] LABS: Urine Amorphous Crystal FEW /hpf (None Seen); Urine Protein, UAD 1+ (Negative)
[2025-09-18 18:00] VITALS: PULSE 74; RESP 14; O2SAT 97
--- NOTE | 2025-09-18 18:20 | DVHHP2 ---
Admitting Diagnosis: chest pain History of Present Illness HPI 54-year-old female with since to the ED via EMS with a chief complaint of lower abdominal pain and substernal chest pain. Patient states lower abdominal pain has been constant over the last 16 days. Patient reports substernal chest pain as of one-week ago. Patient states she was on Keflex 3 days ago for diagnosed UTI. Patient additionally notes she has had right-sided angina in the past, and feels as though she has left-sided angina now. Patient has no further complaints at this time and otherwise denies further associated symptoms of palpitations, weakness, fatigue, nausea, emesis, fever. Home Meds Active Scripts Pantoprazole Sodium Sesquihydr (Protonix) 40 Mg Tab, 40 MG PO DAILY, #30 TAB 6 Refills Prov:JEVON GARDINER DO 09/21/25 Quetiapine Fumerate (QUETIAPINE FUMARATE) 25 Mg Tab, 50 MG PO HS for 30 Days, #60 TAB 6 Refills Prov:JEVON GARDINER DO 09/21/25 Nifedipine (Nifedipine Er) 30 Mg Tab, 30 MG PO DAILY for 30 Days, #30 TAB 6 Refills Prov:JEVON GARDINER DO 09/21/25 Valsartan (Valsartan) 160 Mg Tab, 1 TAB PO DAILY for 90 Days, #90 TAB 6 Refills Prov:JEVON GARDINER DO 09/21/25 Discontinued Reported Medications Pantoprazole Sodium Sesquihydr (Pantoprazole Sodium) 40 Mg Tab, 1 TAB PO DAILY for 90 Days, #90 09/19/25 Carvedilol (Carvedilol) 25 Mg Tab, 1 TAB PO BID for 90 Days, #180 09/19/25 Past Medical History Patient Family History: Cardiovascular disease G8 MOTHER, Review of Systems Pulmonary/Respiratory: Cough Cardiovascular: Chest Pain Gastrointestinal: No symptom reported Musculoskeletal: No symptom reported Skin: No symptom reported Endocrine: No symptom reported H&P Exam Vital Signs Vital Signs Date Time Temp Pulse Resp B/P (MAP) Pulse Ox O2 Delivery O2 Flow Rate FiO2 09/18/25 18:03 74 14 163/88 (113) 97 09/18/25 18:00 Room Air* 0 21 09/18/25 16:40 98.2 98.2 General Appeara: Well developed, Well nourished Head Exam: Normal inspection Neck Exam: Normal inspection Pulmonary/Respiratory: Normal inspection Cardiovascular/Chest: Normal inspection Shoulder Exam: Normal inspection SEPSIS Sepsis Screen Date sepsis recognized/suspect: Sep 18, 2025 Time Sepsis recognized/suspect: 1619 Recent Procedure: No On Antibiotic Therapy: No Respiratory Rate >20: No Heart Rate >90: No Temp<36 C (96.8 F) or >38.3 C: No SBP <90 or MAP <65 mmHG: No New Acute Mental Status Change: No Is the patient on CPAP, BIPAP,: No Physician Orders Troponin-I Hs (09/18/25 18:00) Troponin-I Hs (09/19/25 00:00) Troponin-I Hs (09/19/25 03:00) Troponin-I Hs (09/18/25 19:21) Admit (09/18/25 18:18) Code Status (09/18/25 18:18) Hydrocodone-Acet 5/325mg Tab ([place] 5/32 (09/18/25 18:30) Ondansetron Hcl (Zofran) (09/18/25 18:30) Docusate Sodium Capsule (Colace Capsule) (09/18/25 18:30) Complete Blood Count (09/19/25 04:00) Comprehensive Metabolic Panel (09/19/25 04:00) Cardiac Diet-2gna,Lofat,Lochol (09/18/25 Dinner) Condition: Serious (09/18/25 18:18) Acetaminophen Tablet (Tylenol Tablet) (09/18/25 18:30) Morphine Sulfate Injection (09/18/25 18:30) Lovenox 30mg (09/18/25 18:30) Lovenox 40mg (09/18/25 19:30) Nitroglycerin Sublingual (Ntrostat Subli (09/18/25 18:30) Morphine Sulfate Injection (09/18/25 18:30) Stat Ekg For Chest Pain (09/18/25 18:18) Notify Of Changes From Base (09/18/25 18:18) Gaming Dealer For 24 Hours (09/18/25 18:18) Emergency Dysrhythmia Protocol (09/18/25 18:18) Rhythm Strips Once Every Shift (09/18/25 18:18) Oxygen By Nasal Cannula (09/18/25 18:18) Vital Signs Date Time Temp Pulse Resp B/P (MAP) Pulse Ox O2 Delivery O2 Flow Rate FiO2 09/18/25 18:03 74 14 163/88 (113) 97 09/18/25 18:00 74 14 97 Room Air* 0 21 09/18/25 16:40 98.2 80 18 132/75 (94) 97 98.2 09/18/25 16:29 89 09/18/25 16:18 98.7 84 20 143/83 98 98.7 Laboratory Tests Test 09/18/25 16:49 White Blood Count 9.0 10^3/uL (4.4-10.8) Medications Medications Dose Ordered Sig/Kari Route Start Time Stop Time Status Last Admin Dose Admin Aspirin 325 mg ONCE ONCE PO 09/18/25 16:30 09/18/25 16:31 DC 09/18/25 16:45 325 MG Labs/Xrays Labs Test 09/18/25 18:07 09/18/25 17:30 09/18/25 16:49 Range/Units Urine Color Yellow Yellow Urine Clarity Clear Clear Urine pH 5.5 5.0-9.0 Urine Specific [place] 1.022 1.001-1.035 Urine Protein 1+ H Negative Urine Ketones Negative Negative Urine Blood Trace H Negative /uL Urine Nitrite Negative Negative Urine Bilirubin Negative Negative Urine Urobilinogen Normal Negative mg/dL Urine Leukocyte Esterase Negative Negative /uL Urine RBC 3 0 - 4 /hpf Urine Microscopic WBC 3 0-5 /HPF Urine Squamous Epithelial Cells Few <5 /hpf Urine Amorphous Crystals Few None Seen /hpf Urine Bacteria Few H None Seen /hpf Urine Mucus Few None Seen Urine Glucose Normal Normal mg/dL White Blood Count 9.0 4.4-10.8 10^3/uL Red Blood Count 5.15 4.0-5.20 10^6/uL Hemoglobin 14.4 12.2-16.2 g/dL Hematocrit 42.8 36.0-46.0 % Mean Corpuscular Volume 83.2 80.0-100.0 fL Mean Corpuscular Hemoglobin 28.0 28.0-32.0 pg Mean Corpuscular Hemoglobin Concent 33.7 32.0-36.0 g/dL Red Cell Distribution Width 13.9 11.8-14.3 % Platelet Count 258 140-450 10^3/uL Mean Platelet Volume 8.7 6.9-10.8 fL Neutrophils (%) (Auto) 56.5 37.0-80.0 % Lymphocytes (%) (Auto) 35.0 10.0-50.0 % Monocytes (%) (Auto) 4.1 0.0-12.0 % Eosinophils (%) (Auto) 4.0 0.0-7.0 % Basophils (%) (Auto) 0.4 0.0-2.0 % Neutrophils # (Auto) 5.1 1.6-8.6 10 ^3/uL Lymphocytes # (Auto) 3.2 0.4-5.4 10 ^3/uL Monocytes # (Auto) 0.4 0-1.3 10 ^3/uL Eosinophils # (Auto) 0.4 0-0.8 10 ^3/uL Basophils # (Auto) 0 0-0.2 10 ^3/uL Nucleated Red Blood Cells 0.0 % Sodium Level 142 136-145 mmol/L Potassium Level 3.7 3.5-5.1 mmol/L Chloride Level 106 98-107 mmol/L Carbon Dioxide Level 26 20-31 mmol/L Anion Gap 10 5-15 Blood Urea Nitrogen 12 9-23 mg/dL Creatinine 0.83 0.550-1.02 mg/dL Glomerular Filtration Rate Calc 84 >90 mL/min BUN/Creatinine Ratio 14.5 10.0-20.0 Serum Glucose 139 H 74-106 mg/dL Calcium Level 9.2 8.7-10.4 mg/dL Assessment/Plan Primary Diagnosis 54-year-old female with since to the ED via EMS with a chief complaint of lower abdominal pain and substernal chest pain. Patient states lower abdominal pain has been constant over the last 16 days. Patient reports substernal chest pain as of one-week ago. Patient states she was on Keflex 3 days ago for diagnosed UTI. Patient additionally notes she has had right-sided angina in the past, and feels as though she has left-sided angina now. Patient has no further complaints at this time and otherwise denies further associated symptoms of palpitations, weakness, fatigue, nausea, emesis, fever. chest pain, rule out ACS abdominal pain UTI obesity weakness hx of amputation with prosthetic admitted to med/surg consult to gen surg Plan discussed with: Patient JEVON GARDINER DO Sep 18, 2025 18:20
[2025-09-18] MEDS ORDERED: NITROGLYCERIN 0.4 MG SL TAB SL PRN (18:30)
[2025-09-18] MEDS ORDERED: MORPHINE SULFATE INJ 2 MG/ml SYRG IV PRN ×2 (18:30)
[2025-09-18] MEDS ORDERED: ENOXAPARIN SOD 30 MG/0.3 ML SYRINGE SC SCH (18:30)
[2025-09-18] MEDS ORDERED: ACETAMINOPHEN 325 MG TAB PO PRN (18:30)
[2025-09-18 19:20] VITALS: PULSE 85; RESP 16; O2SAT 98
[2025-09-18] MEDS: ONDANSETRON HCL 4 MG/2 ML VIAL IV PRN (20:05)
[2025-09-18] MEDS: HYDROcodone-ACET 5/325MG TAB PO PRN (21:15)
[2025-09-18] MEDS ORDERED: hydrALAZINE HCL 20 MG/ML VL IV PRN (21:45)
[2025-09-18] MEDS: ENOXAPARIN SOD 40 MG/0.4 ML SYRINGE SC SCH (22:05)
[2025-09-19] VITALS (7 sets, daily range): BP systolic 113–129; BP diastolic 65–90; PULSE 57–114; RESP 13–17; TEMP 97.4–98.2; O2SAT 78–97
[2025-09-19 04:35] LABS: Hematocrit 40.2 % (36.0-46.0); Hemoglobin 13.5 g/dL (12.2-16.2); Mean Corpuscular Hemoglobin 27.8 pg (28.0-32.0); Mean Corpuscular Volume 83.1 fL (80.0-100.0); Nucleated Red Blood Cells % 0.1 %
[2025-09-19 04:55] LABS: Alanine Aminotransferase 22 U/L (7-40); Albumin 3.9 g/dL (3.2-4.8); Anion Gap 10 (5-15); BUN/Creatinine Ratio 13.0 (10.0-20.0); Bilirubin, Total 1.1 mg/dL (0.2-1.0); Blood Urea Nitrogen 10 mg/dL (9-23); Calcium 8.7 mg/dL (8.7-10.4); Carbon Dioxide 26 mmol/L (20-31); Chloride 105 mmol/L (98-107); Sodium 141 mmol/L (136-145); Total Protein 6.4 g/dL (5.7-8.2)
[2025-09-19 04:59] LABS: Alkaline Phosphatase 137 U/L (46-116); Glucose 108 mg/dL (74-106); Potassium 3.2 mmol/L (3.5-5.1)
[2025-09-19] MEDS ORDERED: DEXTROSE (50%) 50ML SYRG IV PRN (15:30)
--- NOTE | 2025-09-19 15:44 | DVHPN2 ---
Progress Note Date Seen: Sep 19, 2025 Medical Necessity Reason Pt with a Central, PICC or Fol: No Subjective Patient reports: No new complaints Objective vital signs Vital Sign Date Time Temp Pulse Resp B/P (MAP) Pulse Ox O2 Delivery O2 Flow Rate FiO2 09/19/25 12:49 97.9 62 16 129/79 (96) 97 97.9 09/19/25 11:46 Room Air* 0 21 medications Current Medications Medications Dose Ordered Sig/Kari Route Start Time Stop Time Status Last Admin Dose Admin Acetaminophen/ Hydrocodone Bitart 1 tab Q4HP PRN PO 09/18/25 18:30 09/19/25 08:24 1 TAB Ondansetron HCl 4 mg Q4HP PRN IV 09/18/25 18:30 09/19/25 08:28 4 MG Docusate Sodium 100 mg BIDPRN PRN PO 09/18/25 18:30 Acetaminophen 650 mg Q6HP PRN PO 09/18/25 18:30 Morphine Sulfate 2 mg Q4HPRN PRN IV 09/18/25 18:30 Enoxaparin Sodium 40 mg DAILY SC 09/18/25 19:30 09/19/25 08:59 40 MG Nitroglycerin 0.4 mg Q5MINP PRN SL 09/18/25 18:30 Morphine Sulfate 2 mg Q30M PRN IV 09/18/25 18:30 Hydralazine HCl 10 mg Q6HP PRN IV 09/18/25 21:45 Nifedipine 30 mg DAILY PO 09/19/25 10:00 09/19/25 08:58 30 MG Quetiapine Fumarate 50 mg HS PO 09/18/25 22:00 09/18/25 22:06 50 MG Pantoprazole Sodium 40 mg BID IV 09/19/25 22:00 UNV Diagnostic Test (Pha) 1 strip ACHS 09/19/25 17:00 UNV Insulin Human Regular HS SC 09/19/25 22:00 UNV Insulin Human Regular AC SC 09/19/25 17:00 UNV Dextrose 50 ml UD PRN IV 09/19/25 15:30 UNV Examination: GENERAL:Normal, HEENT:Normal, NECK:Normal laboratory and microbiology Laboratory Tests 09/19/25 03:43 Test 09/19/25 03:43 Range/Units Serum Glucose 108 H 74-106 mg/dL Labs and/or images reviewed: Labs reviewed by me, Image(s) reviewed by me Problem List/Assessment/Plan Problem List/Assessment/Plan 54-year-old female with since to the ED via EMS with a chief complaint of lower abdominal pain and substernal chest pain. Patient states lower abdominal pain has been constant over the last 16 days. Patient reports substernal chest pain as of one-week ago. Patient states she was on Keflex 3 days ago for diagnosed UTI. Patient additionally notes she has had right-sided angina in the past, and feels as though she has left-sided angina now. Patient has no further complaints at this time and otherwise denies further associated symptoms of palpitations, weakness, fatigue, nausea, emesis, fever. chest pain, rule out ACS abdominal pain UTI obesity weakness hx of amputation with prosthetic 09/19/2025: awaiting for Gen SUrgy to evaluate pt. pt's chest pain improved, likely due to GERD vs costochondritis (Tietze syndrome) admitted to med/surg consult to gen surg Plan discussed with: Patient My Orders My Orders Orders - JEVON GARDINER DO Procedure Category Date Status Time Admit ADMIT 09/18/25 Transmitted 18:18 Code Status CODE 09/18/25 Transmitted 18:18 Hydrocodone-Acet PHA 09/18/25 In Process 5/325mg Tab ([place] 18:30 Ondansetron Hcl PHA 09/18/25 In Process (Zofran) 18:30 Docusate Sodium PHA 09/18/25 In Process Capsule (Colace 18:30 Cardiac DIET 09/18/25 Transmitted Diet-2gna,Lofat,Lochol Dinner Condition: Serious RASHAD 09/18/25 In Process 18:18 Acetaminophen Tablet PHA 09/18/25 In Process (Tylenol Tablet) 18:30 Morphine Sulfate PHA 09/18/25 In Process Injection 18:30 Enoxaparin Sodium PHA 09/18/25 In Process (Lovenox) 19:30 Nitroglycerin PHA 09/18/25 In Process Sublingual (Ntrostat 18:30 Morphine Sulfate PHA 09/18/25 In Process Injection 18:30 Stat Ekg For Chest RASHAD 09/18/25 In Process Pain 18:18 Notify Of Changes RASHAD 09/18/25 In Process From Base 18:18 Menu Planner For RASHAD 09/18/25 In Process 24 Hours 18:18 Emergency Dysrhythmia RASHAD 09/18/25 In Process Protocol 18:18 Rhythm Strips Once RASHAD 09/18/25 In Process Every Shift 18:18 Oxygen By Nasal RT 09/18/25 Transmitted Cannula 18:18 Hydralazine Injection PHA 09/18/25 In Process (Apresoline Inject 21:45 Nifedipine Er PHA 09/19/25 In Process (Procardia Xl 10:00 Quetiapine Fumarate PHA 09/18/25 In Process Tablet (Seroquel Tab 22:00 Mrsa Screen JEB 09/19/25 In Process 12:15 Pantoprazole PHA 09/19/25 Logged (Protonix) 22:00 * Surgical Consult CONS 09/19/25 Transmitted Glucose Blood PHA 09/19/25 Logged (Accu-Chek Comfort 17:00 Insulin R (Human) PHA 09/19/25 Logged (Insulin R) 22:00 Insulin R (Human) PHA 09/19/25 Logged (Insulin R) 17:00 Dextrose 50% Syringe PHA 09/19/25 Logged 15:30 JEVON GARDINER DO Sep 19, 2025 15:44
[2025-09-19] MEDS: InsuLIN REG 1unit/0.01ml Soln (100units/ml) SC SCH ×2 (17:00→22:38)
[2025-09-19] MEDS: ACCU-CHEK COMFORT CURVE STRIP VI SCH (17:00)
--- NOTE | 2025-09-19 17:51 | DVH ---
ULTRASOUND ABDOMEN, LIMITED RIGHT UPPER QUADRANT: REASON FOR EXAM: hernia. The patient states there is bulging in the anterior abdominal wall in the ri t upper quadrant. TECHNIQUE: Real-time sector scans in the transverse and longitudinal planes were obtained through th e right upper quadrant of the abdomen in the area of concern. FINDINGS: In the area of concern in the anterior right upper quadrant of the abdomen, there is hermilo l appearance of the subcutaneous fat and anterior abdominal fascia. No fascial defect or herniation of tissues is identified. IMPRESSION: No hernia identified in the area of concern in the right upper quadrant.
--- NOTE | 2025-09-19 19:53 | DVH ---
CLINICAL HISTORY: pelvic pain TECHNIQUE: Ultrasound examination of the female pelvis was performed transabdominally. Transvaginal u ltrasound was performed to more optimally assess the endometrial cavity. COMPARISON: US ABDOMEN LIMITED on DOS: 09/19/25, US TRANSVAGINAL US NON OB on DOS: 09/19/25 FINDINGS: TRANSABDOMINAL IMAGING: The bladder is not well distended Endovaginal imaging was thereafter performed for better depiction o f the anatomy. ENDOVAGINAL IMAGING: The uterus measures 6.0 x 3.5 x 2.4 CM. The myometrial echotexture is homogenous. No focal myometria l abnormality is seen. The endometrial lining is normal in thickness, measuring 4 mm. The right ovary measures 2.8 x 2.1 x 2.2 cm. There is a 9 mm simple cyst. The left ovary is not seen, likely obscured by overlying bowel gas. Normal color doppler flow and vascular waveforms. There is no free fluid. IMPRESSION: 9 mm right ovarian cyst. Nonvisualization of the left ovary.
[2025-09-19] MEDS: PANTOPRAZOLE 40 MG/10 ML VIAL INJ IV SCH (22:26)
[2025-09-20] VITALS (7 sets, daily range): BP systolic 96–146; BP diastolic 52–97; PULSE 66–99; RESP 16–19; TEMP 97.3–98.3; O2SAT 95–100
[2025-09-20] MEDS: DOCUSATE SOD 100 MG CAP PO PRN (10:20)
--- NOTE | 2025-09-20 18:51 | DVH ---
CLINICAL HISTORY: hernia evaluation TECHNIQUE: CT of the abdomen and pelvis was performed without IV contrast. This exam was performed ac cording to our departmental dose optimization program. Up-to-date CT equipment and radiation dose red uction techniques are utilized as appropriate. CTDI 25 DLP 1481 COMPARISON: US PELVIC on DOS: 09/19/25, US ABDOMEN LIMITED on DOS: 09/19/25 FINDINGS: Abdomen/Pelvis: The spleen, pancreas, adrenal glands, kidneys, liver, bladder, and uterus are grossly unremarkable. T he gallbladder is absent. There are small lower anterior abdominal click pelvic wall hernia containing fat and loop of nonobstr ucted small bowel. There are small adjacent fat containing upper abdominal ventral hernias, best seen on image 81 series 602. The abdominal aorta is normal in course and caliber. There are mild atherosclerotic calcifications. There is no free intraperitoneal air or fluid. There is no enlarged abdominal pelvic lymph node. There is no bowel wall thickening or dilatation. The appendix is normal. Other: The imaged lower thorax demonstrates coronary artery calcifications. No acute osseous abnormality is evident. Impression: Small adjacent fat containing upper abdominal ventral hernias. Small lower abdominal/pelvic wall hernia containing fat and loop of nonobstructed small bowel. Cholecystectomy
[2025-09-20] MEDS: MUPIROCIN 2% OINT 15gm or 22gm FOR MRSA NARES EACHNOSTRI SCH (22:00)
[2025-09-20] MEDS: CYCLOBENZAPRINE HCL 10 MG TAB PO SCH (22:45)
[2025-09-21] VITALS (8 sets, daily range): BP systolic 108–130; BP diastolic 57–83; PULSE 64–85; RESP 7–18; TEMP 36.6; O2SAT 94–97
[2025-09-21] MEDS ORDERED: VALS1TAB58 PO (14:39)
[2025-09-21] MEDS ORDERED: QUET1TAB11 PO (14:39)
[2025-09-21] MEDS ORDERED: NIFE1TAB31 PO (14:39)
[2025-09-21] MEDS ORDERED: PANT40TA2 PO (14:39)
[2025-09-22 01:00] VITALS: BP 98/61; PULSE 74; RESP 19; TEMP 97.9; O2SAT 96
[2025-09-22 05:00] VITALS: BP 92/54; PULSE 67; RESP 18; TEMP 98; O2SAT 95
[2025-09-22 08:00] VITALS: PULSE 98; RESP 18
[2025-09-22 08:40] VITALS: BP 124/85; PULSE 74; RESP 18; TEMP 97.5; O2SAT 98
[2025-09-22 12:30] VITALS: BP 107/62; PULSE 71; RESP 18; TEMP 98.1; O2SAT 98
--- NOTE | 2025-09-23 11:17 | DVHPN2 ---
Progress Note Date Seen: Sep 20, 2025 Medical Necessity Reason Pt with a Central, PICC or Fol: No Objective vital signs Vital Sign Date Time Temp Pulse Resp B/P (MAP) Pulse Ox O2 Delivery O2 Flow Rate FiO2 09/22/25 12:30 98.1 71 18 107/62 (77) 98 98.1 09/22/25 08:00 Room Air* 0 21 Total Intake and Output 09/21/25 09/21/25 09/22/25 15:00 23:00 07:00 Intake Total 450 ml 900 ml Balance 450 ml 900 ml medications Current Medications Medications Dose Ordered Sig/Kari Route Start Time Stop Time Status Last Admin Dose Admin Acetaminophen/ Hydrocodone Bitart 1 tab Q4HP PRN PO 09/18/25 18:30 09/21/25 22:28 1 TAB Ondansetron HCl 4 mg Q4HP PRN IV 09/18/25 18:30 09/21/25 01:53 4 MG Docusate Sodium 100 mg BIDPRN PRN PO 09/18/25 18:30 09/20/25 10:20 100 MG Acetaminophen 650 mg Q6HP PRN PO 09/18/25 18:30 Morphine Sulfate 2 mg Q4HPRN PRN IV 09/18/25 18:30 Enoxaparin Sodium 40 mg DAILY SC 09/18/25 19:30 09/21/25 10:11 40 MG Nitroglycerin 0.4 mg Q5MINP PRN SL 09/18/25 18:30 Morphine Sulfate 2 mg Q30M PRN IV 09/18/25 18:30 Hydralazine HCl 10 mg Q6HP PRN IV 09/18/25 21:45 Nifedipine 30 mg DAILY PO 09/19/25 10:00 09/22/25 08:08 30 MG Pantoprazole Sodium 40 mg BID IV 09/19/25 22:00 09/21/25 10:10 40 MG Diagnostic Test (Pha) 1 strip ACHS 09/19/25 17:00 09/22/25 11:30 1 STRIP Insulin Human Regular HS SC 09/19/25 22:00 09/21/25 22:00 2 UNITS Insulin Human Regular AC SC 09/19/25 17:00 09/22/25 12:11 2 UNITS Dextrose 50 ml UD PRN IV 09/19/25 15:30 Cyclobenzaprine HCl 10 mg BID PO 09/20/25 22:00 09/22/25 08:07 10 MG Mupirocin 1 applic BID EACHNOSTRI 09/20/25 22:00 09/25/25 21:59 09/21/25 22:00 1 APPLIC Quetiapine Fumarate 50 mg HS PO 09/20/25 23:30 09/21/25 22:27 50 MG laboratory and microbiology Laboratory Tests 09/19/25 03:43 Test 09/19/25 03:43 Range/Units Serum Glucose 108 H 74-106 mg/dL Microbiology Date/Time Source Procedure Growth Status 09/19/25 12:22 Nose MRSA Screen - Final Methicillin Resistant S.aureus Complete Labs and/or images reviewed: Labs reviewed by me, Image(s) reviewed by me Problem List/Assessment/Plan Problem List/Assessment/Plan 54-year-old female with since to the ED via EMS with a chief complaint of lower abdominal pain and substernal chest pain. Patient states lower abdominal pain has been constant over the last 16 days. Patient reports substernal chest pain as of one-week ago. Patient states she was on Keflex 3 days ago for diagnosed UTI. Patient additionally notes she has had right-sided angina in the past, and feels as though she has left-sided angina now. Patient has no further complaints at this time and otherwise denies further associated symptoms of palpitations, weakness, fatigue, nausea, emesis, fever. chest pain, rule out ACS abdominal pain UTI obesity weakness hx of amputation with prosthetic 09/19/2025: awaiting for Gen Surgery to evaluate pt. pt's chest pain improved, likely due to GERD vs costochondritis (Tietze syndrome) 09/20/2025: awaiting surgical evaluation chest pain improved further encourage walking pt has been evaluated with echo in the recent past. admitted to med/surg consult to gen surg Plan discussed with: Patient Dietary Evaluation Review Comments: Follow up with GI and cardiology, and lab values Reassess needs PRN Expected Outcomes/Goals: Gradual Wt loss JEVON GARDINER DO Sep 22, 2025 15:20
--- NOTE | 2025-09-23 11:17 | DVHPN2 ---
Progress Note Date Seen: Sep 21, 2025 Medical Necessity Reason Pt with a Central, PICC or Fol: No Objective vital signs Vital Sign Date Time Temp Pulse Resp B/P (MAP) Pulse Ox O2 Delivery O2 Flow Rate FiO2 09/22/25 12:30 98.1 71 18 107/62 (77) 98 98.1 09/22/25 08:00 Room Air* 0 21 Total Intake and Output 09/21/25 09/21/25 09/22/25 15:00 23:00 07:00 Intake Total 450 ml 900 ml Balance 450 ml 900 ml medications Current Medications Medications Dose Ordered Sig/Kari Route Start Time Stop Time Status Last Admin Dose Admin Acetaminophen/ Hydrocodone Bitart 1 tab Q4HP PRN PO 09/18/25 18:30 09/21/25 22:28 1 TAB Ondansetron HCl 4 mg Q4HP PRN IV 09/18/25 18:30 09/21/25 01:53 4 MG Docusate Sodium 100 mg BIDPRN PRN PO 09/18/25 18:30 09/20/25 10:20 100 MG Acetaminophen 650 mg Q6HP PRN PO 09/18/25 18:30 Morphine Sulfate 2 mg Q4HPRN PRN IV 09/18/25 18:30 Enoxaparin Sodium 40 mg DAILY SC 09/18/25 19:30 09/21/25 10:11 40 MG Nitroglycerin 0.4 mg Q5MINP PRN SL 09/18/25 18:30 Morphine Sulfate 2 mg Q30M PRN IV 09/18/25 18:30 Hydralazine HCl 10 mg Q6HP PRN IV 09/18/25 21:45 Nifedipine 30 mg DAILY PO 09/19/25 10:00 09/22/25 08:08 30 MG Pantoprazole Sodium 40 mg BID IV 09/19/25 22:00 09/21/25 10:10 40 MG Diagnostic Test (Pha) 1 strip ACHS 09/19/25 17:00 09/22/25 11:30 1 STRIP Insulin Human Regular HS SC 09/19/25 22:00 09/21/25 22:00 2 UNITS Insulin Human Regular AC SC 09/19/25 17:00 09/22/25 12:11 2 UNITS Dextrose 50 ml UD PRN IV 09/19/25 15:30 Cyclobenzaprine HCl 10 mg BID PO 09/20/25 22:00 09/22/25 08:07 10 MG Mupirocin 1 applic BID EACHNOSTRI 09/20/25 22:00 09/25/25 21:59 09/21/25 22:00 1 APPLIC Quetiapine Fumarate 50 mg HS PO 09/20/25 23:30 09/21/25 22:27 50 MG Examination: GENERAL:Normal, HEENT:Normal, NECK:Normal, LUNGS:Normal laboratory and microbiology Laboratory Tests 09/19/25 03:43 Test 09/19/25 03:43 Range/Units Serum Glucose 108 H 74-106 mg/dL Microbiology Date/Time Source Procedure Growth Status 09/19/25 12:22 Nose MRSA Screen - Final Methicillin Resistant S.aureus Complete Labs and/or images reviewed: Labs reviewed by me, Image(s) reviewed by me Problem List/Assessment/Plan Problem List/Assessment/Plan 54-year-old female with since to the ED via EMS with a chief complaint of lower abdominal pain and substernal chest pain. Patient states lower abdominal pain has been constant over the last 16 days. Patient reports substernal chest pain as of one-week ago. Patient states she was on Keflex 3 days ago for diagnosed UTI. Patient additionally notes she has had right-sided angina in the past, and feels as though she has left-sided angina now. Patient has no further complaints at this time and otherwise denies further associated symptoms of palpitations, weakness, fatigue, nausea, emesis, fever. chest pain, rule out ACS abdominal pain UTI obesity weakness hx of amputation with prosthetic 09/19/2025: awaiting for Gen Surgery to evaluate pt. pt's chest pain improved, likely due to GERD vs costochondritis (Tietze syndrome) 09/20/2025: awaiting surgical evaluation chest pain improved further encourage walking pt has been evaluated with echo in the recent past. 09/21/2025: evaluated by surgery who discussed with pt and recommended that pt to follow up outpatient pt was not happy and wanted to have second opinion. discussed with pt that she can follow up outpatient Plan discussed with: Patient Dietary Evaluation Review Comments: Follow up with GI and cardiology, and lab values Reassess needs PRN Expected Outcomes/Goals: Gradual Wt loss JEVON GARDINER DO Sep 22, 2025 15:20
--- NOTE | 2025-09-23 11:17 | DVHDS2 ---
Discharge Summary Date of Admission Sep 18, 2025 at 18:18 Date of Discharge: Sep 21, 2025 Labs/Diagnostic Data: Laboratory Results Test 09/22/25 11:57 09/19/25 03:43 09/18/25 17:30 POC Glucose 139 mg/dl (70-106) White Blood Count 7.9 10^3/uL (4.4-10.8) Red Blood Count 4.83 10^6/uL (4.0-5.20) Hemoglobin 13.5 g/dL (12.2-16.2) Hematocrit 40.2 % (36.0-46.0) Mean Corpuscular Volume 83.1 fL (80.0-100.0) Mean Corpuscular Hemoglobin 27.8 pg (28.0-32.0) Mean Corpuscular Hemoglobin Concent 33.5 g/dL (32.0-36.0) Red Cell Distribution Width 14.1 % (11.8-14.3) Platelet Count 215 10^3/uL (140-450) Mean Platelet Volume 8.8 fL (6.9-10.8) Neutrophils (%) (Auto) 49.7 % (37.0-80.0) Lymphocytes (%) (Auto) 40.5 % (10.0-50.0) Monocytes (%) (Auto) 5.0 % (0.0-12.0) Eosinophils (%) (Auto) 4.2 % (0.0-7.0) Basophils (%) (Auto) 0.6 % (0.0-2.0) Neutrophils # (Auto) 3.9 10 ^3/uL (1.6-8.6) Lymphocytes # (Auto) 3.2 10 ^3/uL (0.4-5.4) Monocytes # (Auto) 0.4 10 ^3/uL (0-1.3) Eosinophils # (Auto) 0.3 10 ^3/uL (0-0.8) Basophils # (Auto) 0 10 ^3/uL (0-0.2) Nucleated Red Blood Cells 0.1 % Sodium Level 141 mmol/L (136-145) Potassium Level 3.2 mmol/L (3.5-5.1) Chloride Level 105 mmol/L (98-107) Carbon Dioxide Level 26 mmol/L (20-31) Anion Gap 10 (5-15) Blood Urea Nitrogen 10 mg/dL (9-23) Creatinine 0.77 mg/dL (0.550-1.02) Glomerular Filtration Rate Calc 92 mL/min (>90) BUN/Creatinine Ratio 13.0 (10.0-20.0) Serum Glucose 108 mg/dL (74-106) Calcium Level 8.7 mg/dL (8.7-10.4) Total Bilirubin 1.1 mg/dL (0.2-1.0) Aspartate Amino Transferase (AST) 22 U/L (13-40) Alanine Aminotransferase (ALT) 22 U/L (7-40) Alkaline Phosphatase 137 U/L (46-116) Troponin I High Sensitivity 5 ng/L (</=34) Total Protein 6.4 g/dL (5.7-8.2) Albumin 3.9 g/dL (3.2-4.8) Urine Color Yellow (Yellow) Urine Clarity Clear (Clear) Urine pH 5.5 (5.0-9.0) Urine Specific [place] 1.022 (1.001-1.035) Urine Protein 1+ (Negative) Urine Ketones Negative (Negative) Urine Blood Trace /uL (Negative) Urine Nitrite Negative (Negative) Urine Bilirubin Negative (Negative) Urine Urobilinogen Normal mg/dL (Negative) Urine Leukocyte Esterase Negative /uL (Negative) Urine RBC 3 /hpf (0 - 4) Urine Microscopic WBC 3 /HPF (0-5) Urine Squamous Epithelial Cells Few /hpf (<5) Urine Amorphous Crystals Few /hpf (None Seen) Urine Bacteria Few /hpf (None Seen) Urine Mucus Few (None Seen) Urine Glucose Normal mg/dL (Normal) Other Laboratory Tests 09/19/25 03:43 Brief Hx & Hospital Course: 54-year-old female with since to the ED via EMS with a chief complaint of lower abdominal pain and substernal chest pain. Patient states lower abdominal pain has been constant over the last 16 days. Patient reports substernal chest pain as of one-week ago. Patient states she was on Keflex 3 days ago for diagnosed UTI. Patient additionally notes she has had right-sided angina in the past, and feels as though she has left-sided angina now. Patient has no further complaints at this time and otherwise denies further associated symptoms of palpitations, weakness, fatigue, nausea, emesis, fever. chest pain, rule out ACS abdominal pain UTI obesity weakness hx of amputation with prosthetic 09/19/2025: awaiting for Gen Surgery to evaluate pt. pt's chest pain improved, likely due to GERD vs costochondritis (Tietze syndrome) 09/20/2025: awaiting surgical evaluation chest pain improved further encourage walking pt has been evaluated with echo in the recent past. 09/21/2025: evaluated by surgery who discussed with pt and recommended that pt to follow up outpatient pt was not happy and wanted to have second opinion. discussed with pt that she can follow up outpatient 09/22/2015 discharge back to [facility] under my care Pt requested to have [facility] and other meds to be delivered to bedside and because meds where not delivered, pt refused to leave yesterday, therefore, delay in discharge. pt to be discharged to assisted living ([facility]) under my care. Condition at Discharge: Fair Final Diagnosis/Problems List see above Discharge Disposition: Assisted Living Facility Discharge Instruct/Medications Diet: Cardiac 2g Na,low cholest Activity: No Restrictions, As Tolerated Scheduled Nifedipine (Nifedipine Er), 30 MG PO DAILY Pantoprazole Sodium Sesquihydr (Protonix), 40 MG PO DAILY Quetiapine Fumerate (Quetiapine Fumarate), 50 MG PO HS Valsartan (Valsartan), 1 TAB PO DAILY Discontinued Medications Carvedilol (Carvedilol), 1 TAB PO BID, (Reported) Pantoprazole Sodium Sesquihydr (Pantoprazole Sodium), 1 TAB PO DAILY, (Reported) Discharge Statement: "Patient was advised to return to the ER or call 911 if any headaches, dizziness, shortness of breath, chest pain, abdominal pain, bleeding, fevers, or worsening of medical condition. Patient was counseled about treatment plan, medications, possible side effects, patientverbalized understanding. All questions were answered to the best of my ability. This discharge took greater then 30 minutes in planning, reviewing documentation, counseling the patient, and discussing with other team members." ASSESSMENT ASSESSMENT Assessment JEVON GARDINER DO Sep 22, 2025 15:21
== END 2025-09-22 16:36 | disposition home or self-care (01) | DRG 243 ==
LOC: EDBD 16:12 → ER 16:12 → OVERFLOW 18:18 → TELE-WESTW 09-19 11:46
PROVIDERS: ADMIT Internal Medicine; ATTEND Internal Medicine
DX: K21.9 Gastro-esophageal reflux disease without esophagitis (principal); I24.9 Acute ischemic heart disease, unspecified; M94.0 Chondrocostal junction syndrome [Tietze]; Z59.00 Homelessness unspecified; N39.0 Urinary tract infection, site not specified; E11.9 Type 2 diabetes mellitus without complications; E66.9 Obesity, unspecified; F20.9 Schizophrenia, unspecified; I10 Essential (primary) hypertension; Z88.5 Allergy status to narcotic agent; Z88.8 Allergy status to other drugs, medicaments and biological substances; Z82.49 Family history of ischemic heart disease and other diseases of the circulatory system; Z79.899 Other long term (current) drug therapy; Z68.41 Body mass index [BMI] 40.0-44.9, adult
CPT/HCPCS: 36415; 74176; 76705; 76830; 76856; 80048; 80053; 81001; 82962; 84484; 85025; 87081; 93005; G0378; J1815; J2405; J2470